=== PATIENT | male | born 1985 | race Caucasian/White ===

== ENCOUNTER 2016-12-14 13:28 | Emergency (ER) | payer BC ==
[2016-12-14 14:15] VITALS: BP 136/82
--- NOTE | 2016-12-14 15:13 | UC ---
FLU HPI - HPI Summary HPI Summary: 31 Y/O male with C/O nausea, vomiting, body aches, fever x 4 days. Presents today for worsening vomiting and diarrhea. Fever last night 101.3. Denies throat pain or respiratory symptoms. - History of Current Complaint Chief Complaint: UCGI Stated Complaint: DIARRHEA,NAUSEA Time Seen by Provider: 12/14/16 14:01 Hx Obtained From: Patient Onset/Duration: Sudden Onset Severity Currently: Severe Severity Initially: Severe Pain Intensity: 6 Pain Scale Used: 0-10 Numeric Associated Signs & Symptoms: Positive: Vomiting, Diarrhea Related Hx: Possible Flu/Infectious Exposure - Risk Factors Influenza Risk Factors: Negative - Allergy/Home Medications Allergies/Adverse Reactions: Allergies Allergy/AdvReac Type Severity Reaction Status Date / Time Sulfa Antibiotics Allergy Severe Anaphylatic Verified 12/14/16 14:05 Shock Home Medications: Home Medications Albuterol HFA INHALER* [Ventolin HFA Inhaler*] 1 - 2 puff INH Q6H PRN 12/14/16 [ History Confirmed 12/14/16] Bupropion XL* [Wellbutrin XL *] 300 mg PO DAILY 12/14/16 [History Confirmed 09/20] Carisoprodol TAB* [Soma TAB*] 350 mg PO TID 12/14/16 [History Confirmed ] Lansoprazole [Prevacid] 30 mg PO DAILY 12/14/16 [History Confirmed 12/14/16] Losartan TAB* [Cozaar TAB*] 25 mg PO DAILY 12/14/16 [History Confirmed 12/14/16] Pregabalin CAP(*) [Lyrica CAP(*)] 75 mg PO TID 12/14/16 [History Confirmed 12/14] oxyCODONE TAB* [Roxycodone TAB 5 mg*] 15 mg PO QID 12/14/16 [History Confirmed 12/14/16] PMH/Surg Hx/FS Hx/Imm Hx Previously Healthy: Yes Cardiovascular History Of: Reports: Hypertension - Surgical History Surgical History: Yes Surgery Procedure, Year, and Place: left hip reconstruction 2014, T&A - Social History Alcohol Use: None Substance Use Type: Prescribed Smoking Status (MU): Heavy Every Day Tobacco Smoker Type: Cigarettes Amount Used/How Often: 1/2 PPD Length of Time of Smoking/Using Tobacco: 20 years Review of Systems Constitutional: Fever, Chills Skin: Negative Eyes: Negative ENT: Negative Respiratory: Negative Cardiovascular: Negative Gastrointestinal: Abdominal Pain, Diarrhea Genitourinary: Negative Motor: Negative Neurovascular: Negative Musculoskeletal: Arthralgia Neurological: Negative Psychological: Negative All Other Systems Reviewed And Are Negative: Yes Physical Exam Triage Information Reviewed: Yes Appearance: No Pain Distress Vital Signs: Initial Vital Signs Temp 98.2 F 12/14/16 14:07 Pulse 83 12/14/16 14:07 Resp 16 12/14/16 14:07 BP 136/82 12/14/16 14:07 Pulse Ox 98 12/14/16 14:07 Vital Signs Reviewed: Yes Eye Exam: Normal Eyes: Positive: Conjunctiva Clear ENT Exam: Normal ENT: Positive: Normal ENT inspection Dental Exam: Normal Neck exam: Normal Neck: Positive: Supple Respiratory Exam: Normal Respiratory: Positive: Lungs clear, Normal breath sounds Cardiovascular Exam: Normal Cardiovascular: Positive: RRR Abdominal Exam: Normal Abdomen Description: Positive: Nontender Bowel Sounds: Positive: Present Musculoskeletal Exam: Normal Musculoskeletal: Positive: Strength Intact Neurological Exam: Normal Neurological: Positive: Alert Psychological Exam: Normal Skin Exam: Normal Flu Course/Dx - Differential Dx/Diagnosis Differential Diagnosis/HQI/PQRI: Influenza Provider Diagnoses: Viral illness Discharge - Discharge Plan Condition: Stable Disposition: HOME Patient Education Materials: Acute Nausea and Vomiting (ED), Acute Diarrhea (ED ), Ondansetron (By mouth) Additional Instructions: Take Zofran as directed for nausea /vomiting as needed. Please return to walk in clinic or follow up with primary medical provider for continued symptoms.
== END 2016-12-14 15:47 | disposition left against medical advice (07) ==
LOC: UCCORT 13:28
DX: B34.9 Viral infection, unspecified (principal); Z88.2 Allergy status to sulfonamides; F17.210 Nicotine dependence, cigarettes, uncomplicated
CPT/HCPCS: 99202; G0463